=== PATIENT | female | born 1975 | race Caucasian/White ===

== ENCOUNTER 2018-11-12 17:04 | Emergency (ER) | payer SELFPAY ==
[2018-11-12 17:04] VITALS: BP 133/78; PULSE 68; RESP 16; TEMP 36; O2SAT 99; BMI 42.0
--- NOTE | 2018-11-12 17:23 | CT_ITS ---
STUDY: CT BRAIN WITHOUT CONTRAST REASON FOR EXAM: Female, 43 years old. Fall RADIATION DOSAGE (If Supplied By Facility): CTDIvol = ( 44.99 ) mGy, DLP = ( 745.49 ) mGycm TECHNIQUE: Transaxial CT imaging of the brain was performed without administration of intravenous contrast material. Individualized dose optimization techniques were used for this CT. COMPARISON: None. FINDINGS: Normal soft tissue structures. Normal calvarium. Normal size ventricles and extra-axial spaces for the patient's age. Normal white matter tracts of the cerebral hemispheres. Normal basal ganglia and thalami. Normal brainstem. Normal cerebellum. There is no intracranial hemorrhage. There are no findings of an acute ischemic infarction. Normal visualized paranasal sinuses. CT/Brain/Head without Contrast IMPRESSION: Normal unenhanced CT scan of the brain. Electronically Signed: Ricky Zuleta DO at 18:10 EST Tel [phone], Service support ,
[2018-11-12] MEDS: Acetaminophen 500 MG Tablet 1000 MG PO (17:47)
--- NOTE | 2018-11-12 18:42 | ED.DCSUM_ITS ---
- ER Visit Summary Date of Service: 11/12/18 Chief Complaint: Fall and head injury History of Present Illness: The patient is a 43 F presenting for evaluation secondary to fall and head injury. Patient was involved in a mechanical fall earlier today where she struck her head after falling on ice. Patient's denies that she lost consciousness, but has been confused and perseverating since then. She is not on any anticoagulants. She reports a headache right-sided neck pain and right arm pain. She denies any paresthesias weakness or loss of function. Physical Examination: Primary survey: Airway is patent, breath sounds equal bilateral, central peripheral pulses 2+ and symmetric, GCS 15 out of 15. Vitals within normal limits. Secondary survey: General: Well-nourished well-developed no acute distress Head: Normocephalic atraumatic Eyes: PERRLA, EOMI ENT: TMs clear no hemotympanum no drainage Neck: Right-sided paraspinal tenderness to palpation, full range of motion, no step-offs noted Heart: Regular rate and rhythm no murmurs Lungs: Respirations nondistressed, lung sounds clear to auscultation bilaterally, chest nontender, normal chest excursion bilaterally Abdomen: Soft nontender nondistended normal bowel sounds no palpable abdominal masses Back: Nontender no step-offs noted Extremities: Nontender: Active full range of motion ?4 Skin: Normal color no trauma Neuro: Alert and oriented ?4, GCS 15 out of 15, no lateralizing neurological deficits. Test Results: CT brain negative Emergency Department Course and Treatment: Patient presented secondary to a fall. Primary and secondary surveys showed only head injury. Patient was positive for the [employer] head CT rule, so CT imaging was performed which was found to be negative. Patient was given discharge instructions for concussion, and she will follow-up with primary care as needed. Disposition: Discharge Impression: Concussion without loss of consciousness This note was generated with [employer] dictation software. It may contain incorrect words, spelling, and punctuation that were not noted in review of the chart prior to signing ED Disposition - Plan for ED Patient: Disposition: Home or Assisted Living Chief Complaint: Fall Diagnosis: Concussion Instructions: ED Concussion Referrals: Paco Nagel MD [Primary Care Provider] - As Needed
[2018-11-12 18:45] VITALS: BP 125/78; PULSE 70; RESP 14; O2SAT 97
== END 2018-11-12 19:10 | disposition home or self-care (01) ==
PROVIDERS: Emergency Provider Emergency Medicine
DX: S06.0X0A Concussion without loss of consciousness, initial encounter (principal); W00.0XXA Fall on same level due to ice and snow, initial encounter; Y93.9 Activity, unspecified; Y92.9 Unspecified place or not applicable; Y99.9 Unspecified external cause status
CPT/HCPCS: 70450; 99283

== ENCOUNTER 2019-06-15 10:49 | Day surgery (SDC) | payer MEDICAID, SELFPAY ==
--- NOTE | 2019-06-15 | POC_PTH ---
PATIENT: SHANE SANDOVAL LOC: [facility] – [place] U#:[id number] AGE/SX: 43/F ROOM: RE06/15/[address]: Dr. Tigist Kat, MDDOB: 1975 BED: DIS: 06/15/2019 SPEC #: [id number] RECD: 06/15/19 08:20 STATUS: CAIT ARMANDO #: [id number] ARNULFO: 06/15/19 00:[address]: Tigist Kat DEPT: SURGICAL PATHOLOGY RECD BY: Virgilio Saul ENTERED: 06/16/19 08:20 SP TYPE: PROD CONC OTHR DR: Deborah Figueroa, [facility]CUTTER-[facility] Tissues: Product of conception, NOS Procedures: Surgery Specimen Level IV HEADER OPERATION: Dilation and curettage PRE-OP DIAGNOSIS: Missed TISSUE SUBMITTED: Products of conception MICROSCOPIC DIAGNOSIS Endometrium, curettage: Chorionic villi, villous stroma and trophoblastic cells consistent with products of conception. See comment. AM:екатерина 06/17/19 COMMENT Hydropic changes are noted in approximately some of the villi. Clinical correlation is suggested. Case has been reviewed in consultation with Dr. Becerra who concurs with the above diagnosis. IDC:SJ MICROSCOPIC DESCRIPTION Slides are reviewed. GROSS DESCRIPTION Received is one container labeled with the patient name and designated products of conception. The specimen consists of multiple irregular fragments of light pink-curiel soft tissue that in aggregate measure 9 x 7 x 1 cm. parts are not grossly recognized. Tools Developer sections are submitted in 1 cassette. /AM:екатерина 06/16/19 TC: 5 CPT: 00527
[2019-06-15 11:24] VITALS: BP 114/76; PULSE 63; RESP 16; TEMP 36.7; O2SAT 97; BMI 42.7
[2019-06-15] MEDS: Lactated Ringers 1,000 ML 100 ML IV (11:35)
[2019-06-15] MEDS: Doxycycline 100 MG CAPSULE PO (11:38)
--- NOTE | 2019-06-15 12:30 | PCM.HP.BLA ---
History and Physical Date of Admission: 06/15/19 H&P was previously faxed see chart I have re-examined the patient. There are no clinical changes since date of exam.
--- NOTE | 2019-06-15 12:55 | PCM.OPRPT ---
Problem List (1) Missed ab Status: Acute Report of Operation Date of Procedure: 06/15/19 Pre-Operative Diagnosis: missed at 8 weeks and 6 days gestation Post-Operative Diagnosis: same Surgery/Procedure Performed:: suction D&C Description of Surgical Findings:: Uterus 9 weeks size, POC sent to pathology. 8mm suction catheter used. fagot heater helper: DEEJAY - Jackson desir MS3 Type of Anesthesia:: MAC Specimen's removed: Products of conception Drains: none Estimated Blood Loss (mL): 10 Fluids Replaced: 800 Description of Procedure: After informed consent was obtained patient was taken to OR and placed in supine position. Anesthesia was given. patient was placed in yellow fin stirrups and prepped and draped in normal sterile fashion. bladder was drained with straight catheter with approximately 25cc of clear yellow urine expelled. Weighted speculum placed in posterior fornix of vaginal, single tooth tenaculum was used to gently grasped anterior lip of cervix. . Cervix was then gently dilated in an incremental fashion. once adequate dilation was achieved the 8mm suction catheter was placed. suction curettage performed until no tissue was expelled and cavity was deemed empty. gentle sharp curettage performed- no further tissue removed. The tissue was then sent to pathology for examination. No complications. At this time procedure was deemed complete and successful. Tenaculum removed, speculum removed. Good hemostasis appreciated. Vaginal sweep was negative. Instrument and lap count correct x 2. I anticipate normal postoperative course. Grafts/Implants Used: none - Complications none - Admit VTE Documentation VTE Present on Admission: Yes VTE Mechan Device Prophylaxis: SCD's VTE Pharm Prophylaxis ordered?: No
--- NOTE | 2019-06-15 13:01 | DCINST_ITS ---
Discharge Diet: No Restrictions Discharge Activity: Return to Normal Activity, May Shower, May Take a Tub Bath - in 2 weeks. Call your doctor if you observe: Fever of 101 or Higher, Using more than one pad per hour Allergies/Adverse Reactions: Allergies No Known Allergies Allergy (Verified 06/15/19 11:10) Medications to take at Discharge Oxcarbazepine [Trileptal] 300 mg PO DAILY 06/14/19 Sertraline HCl [Zoloft] 50 mg PO DAILY 06/14/19 Primary Care Physician: Cordelia Sanchez [Primary Care Provider] - Test Results: Test results from this visit will be discussed in further detail at your follow- up appointment, if applicable. Please Follow Up With: Tigist Kat MD When: 2 weeks
[2019-06-15 13:09] VITALS: BP 101/59; BP 114/76; PULSE 63; RESP 16; TEMP 36.6; O2SAT 94
[2019-06-15 13:10] VITALS: BP 103/63; BP 114/76; PULSE 61; RESP 16; O2SAT 94
[2019-06-15 13:15] VITALS: BP 102/69; BP 114/76; PULSE 60; RESP 16; O2SAT 95
[2019-06-15 13:20] VITALS: BP 102/71; BP 114/76; PULSE 57; RESP 16; TEMP 36.6; O2SAT 97
[2019-06-15 13:51] VITALS: BP 114/76
== END 2019-06-15 13:52 | disposition home or self-care (01) ==
LOC: SDC 10:53 → AC 10:54
PROVIDERS: Referring Provider Obstetrics & Gynecology; Visit Provider Obstetrics & Gynecology
PROC: (CPT 59820; principal; 2019-06-15 12:15)
DX: O02.1 Missed abortion (principal); Z3A.08 8 weeks gestation of pregnancy; F31.9 Bipolar disorder, unspecified; F17.200 Nicotine dependence, unspecified, uncomplicated; Z87.59 Personal history of other complications of pregnancy, childbirth and the puerperium
CPT/HCPCS: 59820; 88305; J7120; J2405